=== PATIENT | male | born 1970 | race Caucasian/White ===

== ENCOUNTER 2017-03-07 08:14 | Emergency (ER) | payer BC ==
--- NOTE | ~2017-03-07 | ER ---
PAT[facility]'S NAME: [facility] AGE: 46 Y [address] ROOM: [place] [id number] LOCATION: [facility] ADMIT DATE: 03/07/2017 ER/Outpatient Report DISCHARGE DATE: 03/07/2017 FAMILY PHYSICIAN: Emma Mercedes ATTENDING PHYSICIAN: Vikas Rinaldi CHIEF COMPLAINT: Right eye irritation. HISTORY OF PRESENT ILLNESS: The patient had been cutting firewood yesterday and on his way home, he felt something fall into his right eye and since then he has had significant amounts of pain. He is feeling very uncomfortable and wants to get it evaluated. He said he feels like there is something in his eye. Hxam-snb-cpdzsoa medications and cool compresses have been helping somewhat. PAST MEDICAL HISTORY: Documented on the record and reviewed by me. SOCIAL HISTORY: Documented on the record and reviewed by me. MEDICATIONS: Documented on the record and reviewed by me. ALLERGIES: DOCUMENTED ON THE RECORD AND REVIEWED BY ME. REVIEW OF SYSTEMS: All systems reviewed and negative except as noted in the HPI. PHYSICAL EXAMINATION: VITAL SIGNS: Blood pressure 143/71, pulse 60, respiratory rate is 20, temperature 96.7, SpO2 is 98% on room air. GENERAL: Age-appropriate male. No obvious pain or distress, sitting upright on the exam chair, holding a towel to his right eye. HEENT: Normocephalic, atraumatic. The eyes are PERRL. The vision is intact grossly to the right eye. There is a slight area of fluorescein uptake on the superior aspect near the limbus. No perilimbal injection. No cell and flare. The bright lights do not hurt the eye. There is no foreign body on the lid which was everted and swept and visualized immediately. The left eye is grossly unremarkable. The rest of the HEENT exam is unremarkable. CHEST: Heart is regular rate and rhythm with no murmurs. LUNGS: Clear to auscultation bilateral grossly. ABDOMEN: Benign. PAT[facility]'S NAME: [facility] AGE: 46 Y [address] ROOM: [place] [id number] LOCATION: [facility] ADMIT DATE: 03/07/2017 ER/Outpatient Report DISCHARGE DATE: 03/07/2017 FAMILY PHYSICIAN: Emma Mercedes ATTENDING PHYSICIAN: Vikas Rinaldi EXTREMITIES: Warm and well perfused. LABS AND X-RAYS: None. IMPRESSION: Corneal abrasion. EMERGENCY DEPARTMENT COURSE: The patient was seen and evaluated as above. No evidence of scleritis or episcleritis. Not consistent with open globe. Vision is grossly intact. Eyes irritated. Pain relieved with proparacaine drops. The patient will be discharged with some Polytrim drops and instructions take [id number] anti-inflammatories and follow up with the eye physician as needed, if not improved. All questions were answered. The patient was discharged in good condition. MD EDIL MORALES/evans /[id number] d: 03/07/17 1646 t: 03/24/17 0853, OUTPATIENT REPORT
== END 2017-03-07 08:52 | disposition disaster alternative care site (69) ==
LOC: GMED 08:14
DX: S05.01XA Injury of conjunctiva and corneal abrasion without foreign body, right eye, initial encounter (principal); X58.XXXA Exposure to other specified factors, initial encounter